=== PATIENT | male | born 1970 | race Asian ===

== ENCOUNTER 2020-03-18 11:25 | Day surgery (SDC) | payer OTHER ==
[2020-03-17 10:30] VITALS: BMI 27.3
[2020-03-18] MEDS ORDERED: DESFLURANE GAS 240 ML BOTTLE IH ONE (12:58)
[2020-03-18] MEDS ORDERED: SEVOFLURANE 250 ML BTL ONE (12:58)
[2020-03-18] MEDS ORDERED: PROPOFOL 20 ML ONE ×2 (12:59)
[2020-03-18] MEDS ORDERED: DEXAMETHASONE SOD PHOSPHATE 4 MG/1 ML VIAL ONE (13:01)
[2020-03-18] MEDS ORDERED: KETOROLAC TROMETHAMINE 30 MG/1 ML VIAL ONE (13:01)
[2020-03-18] MEDS ORDERED: SUCCINYLCHOLINE CHLORIDE 200 MG/10 ML SYRINGE ONE (13:03)
[2020-03-18] MEDS ORDERED: ONDANSETRON 4 MG/2 ML VIAL IVPUSH PRN (13:29)
[2020-03-18] MEDS ORDERED: oxyCODONE HCL 5 MG TABLET PO PRN ×2 (13:29)
[2020-03-18] MEDS ORDERED: PROMETHAZINE HCL 25 MG/1 ML VIAL IVPUSH PRN (13:29)
[2020-03-18] MEDS ORDERED: LACTATED RINGERS SOLUTION 1,000 ML IV SCH (13:30)
[2020-03-18] MEDS ORDERED: ceFAZolin SODIUM 1 GM VIAL IVPB ONE (19:00)
--- NOTE | 2020-03-18 19:16 | OP ---
Operative Note - Note: Operative Date: 03/18/20 Pre-Operative Diagnosis: rt.hydro, rt. renal stone,hematuria Operation: rull with jj stent Findings: rt. hydro, rt. renal stones Post-Operative Diagnosis: Same as Pre-op Surgeon: Jocelyn López Anesthesia: General Specimens Removed: urine, stone Estimated Blood Loss (mls): 0 Instrument used (Debridements only): 0 Drains & Tubes with Location: 24cm-6f rt. jj stent Drains, Volume Out (mls): 0 Blood Volume Replaced (mls): 0 Fluid Volume Replaced (mls): 0 Operative Report Dictated: Yes
[2020-03-18] MEDS ORDERED: ACETAMINOPHEN 325 MG TABLET (FP) PO PRN ×2 (19:17→21:17)
--- NOTE | 2020-03-18 19:37 | CONS ---
DATE OF CONSULTATION: DATE OF DICTATION: 03/18/2020 PREOPERATIVE NOTE HISTORY OF PRESENT ILLNESS: The patient is a 49-year-old male with right flank pain, frequency, dysuria, hematuria. A CAT scan was performed, and this revealed a right renal staghorn with some hydronephrotic changes. The patient does have history of high blood pressure and dyslipidemia. He is presently on simvastatin and Lotrel. He denies any allergies. He does have some frequency and urgency. PHYSICAL EXAMINATION: Abdomen: physical examination revealed a soft abdomen. There was no CVA masses. There was some right flank tenderness. Genitourinary: Genitalia were atraumatic. Testes were normal in size and consistency. No hernias or hydrocele were elicited. Prostate is 2+, flat, not tender. Rectal tone is good. Saddle sensation is present. Extremities: Full range of motion with no cyanosis, clubbing, or edema. His PSA is 1.1. Urinalysis reveals a large amount of blood. IMPRESSION: At present is right renal staghorn with mild hydronephrosis and hematuria. Patient will undergo a cystoscopy, right retrograde pyelogram, and placement of a right JJ stent. Will then decide to either undergo extracorporeal shockwave lithotripsy or percutaneous nephrolithotripsy. Perla [id number]
[2020-03-19] MEDS ORDERED: ACETAMINOPHEN 325 MG TABLET (FP) PO PRN (10:00)
[2020-03-21 11:56] VITALS: BP 118/72; PULSE 75; TEMP 98
--- NOTE | 2020-03-22 15:31 | PATH ---
Surgical Pathology Report Patient Name: JOSE STEINER [facility]. Rec. #: [id number] /Age/Gender: 1970 (Age: 49) / M Account: [id number] Location: [facility] Taken: 03/18/2020 Received: 03/21/2020 Reported: 03/22/2020 Physicians: Jocelyn López M.D. Specimen(s) Received RENAL STONE RIGHT SIDE Clinical History Renal stone, hydronephrosis Final Diagnosis RENAL STONE RIGHT SIDE, REMOVAL: CONSISTENT WITH RENAL CALCULUS. SENT FOR CHEMICAL ANALYSIS. Electronically Signed Kd To M.D. Gross Description Received in a container, labeled "renal stone right side", is a yellow calculus measuring 0.5 cm in greatest dimension. Sent for chemical analysis. __ KWMireya/03/21/2020 laci/03/21/2020
--- NOTE | 2020-03-23 09:26 | PATH ---
Cytology Non-Gynecological Report Patient Name: JOSE STEINER [facility]. Rec. #: [id number] /Age/Gender: 1970 (Age: 49) / M Account: [id number] Location: [facility] Taken: 03/21/2020 Received: 03/22/2020 Reported: 03/23/2020 Physicians: Jocelyn López M.D. Specimen(s) Received URINE VOIDED Clinical History Renal stone Final Diagnosis URINE FOR CYTOLOGY: SATISFACTORY FOR EVALUATION. NEGATIVE FOR HIGH GRADE UROTHELIAL CARCINOMA. RED BLOOD CELLS, UROTHELIAL CELLS, AND CRYSTAL MATERIAL PRESENT. CLINICAL CORRELATION IS RECOMMENDED. Electronically Signed Kd To M.D. Gross Description Approximately 60cc of nico fluid received fresh. One cytospin prepared.
--- NOTE | 2020-03-24 10:55 | OP ---
DATE OF OPERATION: 03/18/2020 PREOPERATIVE DIAGNOSES: Right hydronephrosis, renal colic, hematuria. POSTOPERATIVE DIAGNOSES: Right hydronephrosis, renal colic, hematuria. OPERATIVE PROCEDURE: Cystoscopy, right retrograde pyelogram, right ureteroscopic laser lithotripsy and placement of right JJ stent. ANESTHESIA: General. DESCRIPTION OF PROCEDURE: Under above-stated anesthesia patient was prepped and draped in the usual sterile manner. He was placed in the dorsal lithotomy position. Cystoscopy revealed a normal bladder. Ureteral orifices were within normal limits. Efflux of clear urine was noted from the left, none from the right. A right retrograde pyelogram revealed a filling defect in the right lower ureter. A glidewire was passed up the right renal unit. Ureteroscopy revealed a stone in the right mid ureter. A holmium laser was introduced. The stone was fragmented. Several pieces were sent to pathology. Afterwards a 24-cm, 6-Turkmen right JJ stent was placed in the right renal unit and x-rays confirmed good position of the stent. The patient tolerated the procedure well. He returned to the recovery room in good condition. Perla [id number]
[2020-04-06 14:47] LABS: SIZE 5X5 mm
[2020-04-06 14:48] LABS: CA OXALATE MONOHYDR. 10; URIC ACID 90; WEIGHT 49 mg
== END 2020-03-18 21:56 | disposition home or self-care (01) ==
LOC: JASU-SURG 11:25 → J8W 20:44 → JASU-SURG 21:56
PROVIDERS: ATTEND Urology
PROC: BT1DYZZ Fluoroscopy of Right Kidney, Ureter and Bladder using Other Contrast (ICD-10-PCS; 2020-03-18)
PROC: 0TC38ZZ Extirpation of Matter from Right Kidney Pelvis, Via Natural or Artificial Opening Endoscopic (ICD-10-PCS; principal; 2020-03-18 13:30)
PROC: 0T768DZ Dilation of Right Ureter with Intraluminal Device, Via Natural or Artificial Opening Endoscopic (ICD-10-PCS; 2020-03-18 13:30)
DX: N20.0 Calculus of kidney (principal); N13.30 Unspecified hydronephrosis; R31.9 Hematuria, unspecified
CPT/HCPCS: 36415; 76000-TC-FY; 82360; 88108; 88300-TC; 94760

== ENCOUNTER 2024-12-21 05:15 | Day surgery (SDC) | payer OTHER ==
[2024-12-18 17:10] VITALS: BMI 28.8
[2024-12-21 06:27] VITALS: RESP 20
[2024-12-21] MEDS ORDERED: MIDAZOLAM HCL 2 MG/2 ML SINGLE DOSE VIAL ONE (07:32)
[2024-12-21] MEDS ORDERED: PROPOFOL 20 ML ONE (07:32)
[2024-12-21] MEDS ORDERED: ONDANSETRON 4 MG/2 ML VIAL ONE (07:35)
[2024-12-21] MEDS ORDERED: LIDOCAINE HCL/PF 2% SDV 5ML VIAL ONE (07:35)
[2024-12-21 09:23] VITALS: BP 125/72; PULSE 58; TEMP 97.1
== END 2024-12-21 09:20 | disposition home or self-care (01) ==
LOC: JASU-SURG 05:15
PROVIDERS: ATTEND Urology
PROC: 0TC38ZZ Extirpation of Matter from Right Kidney Pelvis, Via Natural or Artificial Opening Endoscopic (ICD-10-PCS; principal; 2024-12-21 08:00)
DX: N20.0 Calculus of kidney (principal)